=== PATIENT | male | born 1955 | race Caucasian/White ===

== ENCOUNTER → 2018-05-23 11:46 | Outpatient (CLI) | payer OTHER, SELFPAY ==
--- NOTE | 2018-05-23 12:12 | DI.CT.S_ITS ---
PROCEDURE: CT SOFT TISSUE NECK W CON INDICATIONS: Subcutaneous mass at sternal notch TECHNIQUE: After the administration of intravenous contrast, 3.0 mm axial sections acquired from the sella to the aortic arch. Additional oblique axial 3.0 mm sections acquired through the pharynx. 3 mm thick coronal and sagittal reformats were generated. For radiation dose reduction, the following was used: automated exposure control. COMPARISON: None. FINDINGS: Image quality: Excellent. Lymph nodes: No enlarged lymph nodes seen throughout the neck. Vessels: Visualized vasculature appears patent. Neck spaces: There is mild soft tissue stranding deep to the marker in the area palpable abnormality. There is a prominent vessel in the area. No soft tissue mass. The oropharynx, nasopharynx, and pharynx demonstrate no mucosal lesions. The vocal cords, false vocal cords, pyriform sinuses, epiglottis, vallecula, and tongue base all appear normal. Extramucosal spaces appear unremarkable. Glands: There is a low density nodule in the right parotid gland measuring 8 mm. The parotid and submandibular glands otherwise appear normal. Thyroid gland is normal. Miscellaneous: Visualized brain and orbits appear normal. Lung apices appear clear. Superficial soft tissues appear normal. Bones: No suspicious bony lesions. Mild mucosal thickening in maxillary sinuses bilaterally. Visualized mastoids appear unremarkable. Degenerative disc disease at C5-C6 and C6-C7. IMPRESSION: 1. No soft tissue mass is identified in the area of interest. A vessel is noted deep to the skin marker. There is mild stranding in the subcutaneous tissue deep to the marker, which is nonspecific. 2. No cervical lymphadenopathy. 3. An 8 mm indeterminate low density nodule in the right parotid gland. 4. Mild bilateral maxillary sinus mucosal thickening. Dictated by: Lilian Galvez M.D. on 05/23/2018 at 14:18 Approved by: Lilian Galvez M.D. on 05/23/2018 at 14:28
[2018-05-23 12:18] LABS: BUN Creatinine Ratio 12.3 (6-22); Blood Urea Nitrogen 16 mg/dL (9-20); Estimated Glomerular Filt Rate 56.3 mL/min (>60)
== END ==
PROVIDERS: PCP Family Medicine; Visit Provider Surgery
DX: R22.2 Localized swelling, mass and lump, trunk (principal); J32.0 Chronic maxillary sinusitis
CPT/HCPCS: 36415; 70491; 82565; 84520; Q9967

== ENCOUNTER 2018-06-21 06:50 | Day surgery (SDC) | payer OTHER, SELFPAY ==
[2018-06-15 09:08] VITALS: BMI 27.7
[2018-06-21] VITALS (10 sets, daily range): BP systolic 95–117; BP diastolic 52–72; PULSE 82–89; RESP 11–16; TEMP 36.4–36.7; O2SAT 95–99; BMI 27.7
--- NOTE | 2018-06-21 | PATH_ITS ---
[facility] Accession Number: [id number] . 01 Material submitted: . ANTERIOR NECK MASS . 01 Diagnosis: Anterior Neck Mass, Excision: Mature adipose tissue, consistent with lipoma. Negative for malignancy. MRV/06/23/2018 . 01 Electronically signed: . Carri Ayers MD, Pathologist NPI- [id number] . 01 Gross description: . Received in formalin, labeled anterior neck mass, is a piece of mcwilliams-yellow rubbery adipose tissue (7.2 x 4.3 x 3.0 cm) with a homogeneous unremarkable cut surface. The tissue is inked black. [employer] tissue submitted in cassettes A1-A3. ([id number]) /MRV . 01 Pathologist provided ICD-10: D17.9 . 01 CPT . 394541 Performed at: 01 [facility] [address] [place] [address] [id number] MD Ernesto Palomino MD Phone: [phone]
[2018-06-21] MEDS: LACTATED RINGERS 1,000 ML 42 ML IV (07:14)
--- NOTE | 2018-06-21 07:26 | PM.PREOP ---
Pre-operative Note Interval Note History & Physical reviewed/Exam performed by Physician: Yes Changes to H&P: No H&P completed within 30 days and has changed as indicated here:: Patient seen and examined once again in the preoperative area. History and physical examination dated May 25, 2018 on the chart has not changed. Operative site marked accordingly. We will proceed today as planned.
[2018-06-21] MEDS: CLINDAMYCIN 900 MG/50 ML PIGGYBACK 50 MG IV (07:39)
--- NOTE | 2018-06-21 08:10 | SUR.OPER ---
Supine on padded OR bed, head on pillow, arms secured on padded arm boards at <90 degrees abduction, legs uncrossed, safety belt at thigh, tape over blanket over lower legs.
[2018-06-21] MEDS: LIDOCAINE 1% W/EPI INJ 20 ML INJ (08:16)
[2018-06-21] MEDS: BUPIVACAINE 0.5% (PF) VIAL 30 ML INJ (08:16)
--- NOTE | 2018-06-21 08:57 | PM.OP.1 ---
Operative Date/Time/Diagnoses Date of procedure: 06/21/18 Time of procedure: 08:58 Pre-op diagnosis: symptomatic lipoma of the anterior neck Post-op diagnosis: same Procedure & Clinicians Procedure: Excision of symptomatic lipoma of the anterior neck measuring 6 x 5 x 4 cm in greatest diameter Same procedure as scheduled: Yes Indications: 62-year-old male with slowly enlarging anterior neck mass at the sternal notch which was beginning to cause some pain and discomfort. Examination and evaluation including CT scan were consistent with benign lipoma only that did not extend into the mediastinum. Therefore excision was recommended. Surgeon: Mike Evans Click Yes if Unassisted: Yes Anesthesia Type: General Operative Notes Findings: 1. Grossly benign appearing lobulated fatty tissue mass in the anterior neck extending from the cricothyroid membrane to the sternal notch contained between the sternocleidomastoid muscles bilaterally 2. No other significant abnormalities noted Closure Type: primary Specimen(s): other (Anterior neck mass) Prosthetic devices, grafts, tissues, transplants, or devices: None Estimated Blood Loss (mL): 5 Blood products transfused: none Procedure in detail: After obtaining informed consent the patient was brought to the operating room placed supine on the table. After satisfactory induction of anesthesia the neck was slightly hyperextended then prepped and draped in usual sterile fashion. SCOAP time out was performed per standard protocol. A curvilinear incision in existing skin crease at the base of the anterior neck was then designed and infiltrated with a 1 :1 mixture 1% lidocaine with 1:100,000 epinephrine and 0.5% plain Marcaine for postoperative analgesia. Skin incision was created with 15 scalpel blade followed by the Bovie to achieve hemostasis. Incision was carried down through the platysma muscle and retraction was achieved with the Weitlaner. The fatty mass was immediately encountered and secured with an Allis clamp. Meticulous circumferential dissection was performed with the Bovie. Hemostasis was achieved with the Bovie. The mass was then from surrounding structures including the sternocleidomastoid muscles bilaterally down to the level of the pretracheal fascia. Great care was taken to avoid injury to the trachea and adjacent structures. Dissection was limited to the anterior tracheal surface only and the isthmus of the thyroid was not violated. Lesion was then removed and sent for permanent section. Wound was irrigated and noted to be hemostatic. Platysma muscle was reapproximated with interrupted 3 0 Vicryl suture. Skin was closed with running subcuticular 4 O Monocryl suture. Dermal adhesive was applied. Anesthesia was reversed and patient extubated in the operating room. He was taken recovery in stable condition. Complications: none Condition: stable Disposition: PACU Plan for aftercare: 1. Discharge home 2. Follow up in surgery Clinic in 2 weeks
[2018-06-21] MEDS: fentaNYL 100 MCG/2 ML INJ 50 MCG IV ×2 (09:10→09:15)
[2018-06-21] MEDS: OXYCODONE/ACETAMINOPHEN 5/325 TABLET 1 TAB PO (09:31)
== END 2018-06-21 10:01 | disposition home or self-care (01) ==
PROVIDERS: PCP Family Medicine; Visit Provider Surgery
PROC: (CPT 21552; principal; 2018-06-21 07:45)
DX: D17.1 Benign lipomatous neoplasm of skin and subcutaneous tissue of trunk (principal); I10 Essential (primary) hypertension
CPT/HCPCS: 21552; J2250; J2405; J2704; J3010

== ENCOUNTER → 2020-10-21 19:24 | Outpatient (ROUT) | payer OTHER, SELFPAY ==
[2020-10-21 20:44] LABS: COVID19 - ORCAS (NP or Nasal) Negative (Negative)
== END ==
PROVIDERS: PCP Family Medicine; Visit Provider Family Medicine
DX: Z20.822 Contact with and (suspected) exposure to COVID-19 (principal)
CPT/HCPCS: U0003

== ENCOUNTER → 2022-04-25 11:07 | Outpatient (CLI) | payer OTHER, SELFPAY ==
--- NOTE | 2022-04-25 11:12 | DI.CT.S_ITS ---
PROCEDURE: CT ANGIO HEAD AND NECK INDICATIONS: asymptomatic carotid artery stenosis TECHNIQUE: Pre-contrast 4.5 mm thick sections acquired from the foramen magnum to the vertex. After the administration of intravenous contrast, 1 mm thick sections acquired from the aortic arch through the [place] of [place]. Post-contrast 4.5 mm thick sections then re-acquired from the foramen magnum to the vertex. 3-dimensional dhkpynp-oobmerqwq-zbdeqvpjvq (MIP) and/or volume rendering reformats were acquired of the central intracranial vasculature and neck separately. For radiation dose reduction, the following was used: automated exposure control, adjustment of mA and/or kV according to patient size. COMPARISON: None. FINDINGS: Image quality: Excellent. BRAIN: CSF spaces: Ventricles are normal in size and shape. Basal cisterns are patent. No extra-axial fluid collections. Brain: No midline shift. No intracranial bleeds or masses. Molina-white matter interface appears intact. Skull and face: Calvarium and facial bones appear intact, without suspicious lesions. Orbits appear normal. Sinuses: Sinuses and mastoids are clear. HEAD CT ANGIOGRAPHY: Anterior circulation: Intracranial internal carotid arteries are normal in size and flow. The flow within the paired anterior cerebral arteries is normal and symmetric. The flow within the middle cerebral arteries is normal and symmetric. The anterior communicating artery is seen. No aneurysms are seen. Posterior circulation: Visualized portions of the vertebral arteries demonstrate normal caliber, and join to form a normal appearing basilar artery. Flow within the posterior cerebral arteries is normal and symmetric. No aneurysms are seen. NECK CT ANGIOGRAPHY: Carotid system: The great vessels demonstrate a conventional anatomy as they arise from the aortic arch. The origins of the common carotid arteries appear patent. The common carotid arteries demonstrate normal caliber and courses. There is focal calcification seen involving the left carotid bifurcation, with 50-60% narrowing proximally. The right carotid bifurcation is normal. The more distal internal carotid arteries demonstrate normal course and caliber. Posterior circulation: The origins of the vertebral arteries both appear widely patent. The more superior extracranial portions of both vertebral arteries also demonstrate normal courses and calibers. They join to form a normal appearing basilar artery. Soft tissues: Visualized neck soft tissues demonstrate no suspicious abnormalities. Bones: No suspicious bony lesions. Visualized cervical spine appears normally aligned. IMPRESSION: There is focal calcification seen involving the left proximal internal carotid artery, with 50-60% stenosis seen at this site. No significant intracranial arterial abnormality is seen. Any quantitative measurements of stenosis were performed using NASCET criteria. Dictated by: Navin Dsouza M.D. on 04/25/2022 at 11:59 Approved by: Navin Dsouza M.D. on 04/25/2022 at 12:02
== END ==
PROVIDERS: PCP Physician Assistant; Referring Provider Surgery Vascular Surgery; Visit Provider Surgery Vascular Surgery
DX: I65.22 Occlusion and stenosis of left carotid artery (principal)
CPT/HCPCS: 70496; 70498; Q9967

== ENCOUNTER → 2024-04-07 08:44 | Outpatient (CLI) | payer OTHER, SELFPAY ==
--- NOTE | 2024-04-07 08:51 | DI.RAD.S_ITS ---
PROCEDURE: XR LUMBAR SPINE 6V W BENDING INDICATIONS: Spondylolisthesis, lumbar region TECHNIQUE: 5 views of the lumbar spine acquired, including flexion and extension views. COMPARISON: [facility], MR, MR LUMBAR SPINE WITHOUT CONTRAST, 12/21/2023, 10:15. FINDINGS: Bones: 5 nonrib-bearing vertebrae are present. Mild levocurvature centered at L1. Severe diffuse osteopenia. Chronic L1 compression. Prominent lower lumbar facet arthropathy. Approximately 6 mm of anterolisthesis of L4 on L5 without significant abnormal motion on flexion and extension. Total left hip arthroplasty. No suspicious bony lesions. Soft tissues: Nonspecific bowel gas pattern. Multiple mildly prominent loops of bowel with air-fluid levels. No suspicious soft tissue calcifications. Flexion/extension: There is normal range of motion, with preserved normal alignment. IMPRESSION: 1. Severe osteopenia. 2. Old L1 compression. 3. Degenerative change as described above. 4. Nonspecific bowel gas pattern. 5. No significant motion on flexion and extension. Dictated by: Hosea Spivey M.D. on 04/07/2024 at 19:24 Approved by: Hosea Spivey M.D. on 04/07/2024 at 19:27
[2024-04-13 13:36] LABS: Cotinine <10.0 ng/mL (.); Nicotine <10.0 ng/mL (.)
== END ==
PROVIDERS: PCP Family Medicine; Referring Provider Orthopaedic Surgery Orthopaedic Surgery of the Spine; Visit Provider Orthopaedic Surgery Orthopaedic Surgery of the Spine
DX: M47.26 Other spondylosis with radiculopathy, lumbar region (principal); M48.062 Spinal stenosis, lumbar region with neurogenic claudication; M43.16 Spondylolisthesis, lumbar region; M85.88 Other specified disorders of bone density and structure, other site
CPT/HCPCS: 72114; 80323

== ENCOUNTER → 2024-06-16 09:23 | Outpatient (CLI) | payer OTHER, SELFPAY | LOC: LAB 09:25 | PROVIDERS: PCP Family Medicine; Referring Provider Orthopaedic Surgery Orthopaedic Surgery of the Spine; Visit Provider Orthopaedic Surgery Orthopaedic Surgery of the Spine | DX: M54.16 Radiculopathy, lumbar region (principal); M48.062 Spinal stenosis, lumbar region with neurogenic claudication | CPT/HCPCS: 80323 ==